=== PATIENT | male | born 1995 | race African-American/Black ===

== ENCOUNTER 2017-10-09 09:51 | Emergency (ER) | payer MEDICAID, SELFPAY ==
[~2017-10-09] VITALS: Ht 172.7 cm; Wt 108.2 kg
[2017-10-09] MEDS ORDERED: AZITHROMYCIN 250 MG TAB PO ONE (12:00)
[2017-10-09] MEDS ORDERED: cefTRIAXone SOD 250 MG VIAL (J0696) IM ONE (12:00)
[2017-10-09 12:15] VITALS: BP 137/80
--- NOTE | 2017-10-09 13:12 | REP ---
SCROTAL ULTRASOUND: Real-time sonographic evaluation of the scrotum and contents performed. Testicles are normal in size and echotexture, right testicle measuring 4.8 x 2.5 x 3.1 cm and left testicle 5.4 x 3.1 x 4.4 cm. There is no testicular mass or torsion. Blood flow is seen in each testicle with duple Doppler evaluation, RI right testicle 0.41 and left testicle 0.51. Increased blood flow is seen to the right epididymis superiorly suggesting right sided epididymitis. No hydrocele or other abnormality is seen. IMPRESSION: Findings suggestive of right sided epididymitis. No testicular mass or torsion. Signed by Steven Vera MD 10/09/2017 05:36 P
== END 2017-10-09 12:37 | disposition home or self-care (01) ==
LOC: M ED 09:51
DX: N45.1 Epididymitis (principal); Z20.2 Contact with and (suspected) exposure to infections with a predominantly sexual mode of transmission
CPT/HCPCS: 76870; 81001; 87491; 87591; 93976; 96372; 99284; J0696

== ENCOUNTER 2018-02-16 09:37 | Emergency (ER) | payer OTHER, MEDICAID ==
[2018-02-16 10:27] LABS: KETONE, URINE AUTO RFX NEGATIVE (NEGATIVE); LEUKOCYTE ESTERASE UR AUTO RFX NEGATIVE (NEGATIVE); MUCUS, URINE RFX SMALL (NEGATIVE); NITRITE, URINE AUTO RFX NEGATIVE (NEGATIVE); RBC, URINE AUTO RFX 2 /HPF (0-3); SPECIFIC GRAVITY UR AUTO RFX 1.017 (1.002-1.035); SQUAM EPITHELIAL CELL UR AURFX 0 /HPF (0-6); WBC, URINE AUTO RFX 3 /HPF (0-3)
[2018-02-16 13:08] LABS: CHLAMYDIA DNA AMPLIFICATION NEGATIVE (NEGATIVE); GC DNA AMPLIFICATION NEGATIVE (NEGATIVE)
== END 2018-02-16 11:54 | disposition home or self-care (01) ==
LOC: M ED 09:37
DX: N45.2 Orchitis (principal); I10 Essential (primary) hypertension; J45.909 Unspecified asthma, uncomplicated; Z79.899 Other long term (current) drug therapy; F17.210 Nicotine dependence, cigarettes, uncomplicated
CPT/HCPCS: 76870

== ENCOUNTER 2018-03-20 11:22 | Emergency (ER) | payer OTHER ==
[2018-03-20] MEDS: KETOROLAC 60 MG/2 ML VIAL (J1885) IM (14:27)
== END 2018-03-20 15:06 | disposition home or self-care (01) ==
LOC: M ED 11:22
DX: M54.31 Sciatica, right side (principal); J45.909 Unspecified asthma, uncomplicated; I10 Essential (primary) hypertension; Z79.899 Other long term (current) drug therapy
CPT/HCPCS: J1885

== ENCOUNTER → 2018-04-11 | Outpatient (REF) | payer OTHER, MEDICAID ==
[2018-04-11 18:36] LABS: ALBUMIN 3.8 GM/DL (3.2-5.2); ALBUMIN/GLOBULIN RATIO 0.93 (1.00-1.93); ALKALINE PHOSPHATASE 89 U/L (45-117); ALT/SGPT 106 U/L (12-78); ANION GAP 5 MEQ/L (8-16); AST/SGOT 51 U/L (7-37); BILIRUBIN,TOTAL 0.5 MG/DL (0.2-1.0); BLOOD UREA NITROGEN 13 MG/DL (7-18); CALCIUM LEVEL 9.6 MG/DL (8.5-10.1); CARBON DIOXIDE LEVEL 33 MEQ/L (21-32); CHLORIDE LEVEL 104 MEQ/L (98-107); CHOLESTEROL LEVEL 154 MG/DL (<200); CHOLESTEROL RISK RATIO 3.422 (<5); CREATININE FOR GFR 1.09 MG/DL (0.70-1.30); GLOMERULAR FILTRATION RATE > 60.0 (>60); GLUCOSE, FASTING 112 MG/DL (70-100); HDL CHOLESTEROL 45 MG/DL (>40); LDL CHOLESTEROL 92.2 MG/DL (<100); NON-HDL-C 109 MG/DL; SODIUM LEVEL 142 MEQ/L (136-145); THYROID STIMULATING HORMONE 0.665 uIU/ML (0.358-3.740); TOTAL PROTEIN 7.9 GM/DL (6.4-8.2); TRIGLYCERIDES LEVEL 84 MG/DL (<150)
== END ==
LOC: M LAB REF 17:33
DX: I10 Essential (primary) hypertension (principal)
CPT/HCPCS: 84443

== ENCOUNTER → 2018-05-01 | Outpatient (REF) | payer OTHER, MEDICAID ==
[2018-05-03 08:10] LABS: HEPATITIS A IgG TOTAL Positive (Negative)
[2018-05-03 08:47] LABS: HEPATITIS B SURFACE ANTIBODY NEGATIVE (POSITIVE)
[2018-05-03 08:53] LABS: HEPATITIS B SURFACE ANTIGEN NEGATIVE (NEGATIVE)
[2018-05-03 09:18] LABS: HEPATITIS C VIRUS ABY INDEX 0.1 INDEX (<0.8)
== END ==
LOC: M LAB REF 17:36
DX: R79.89 Other specified abnormal findings of blood chemistry (principal)

== ENCOUNTER → 2020-01-03 | Outpatient (REF) | payer OTHER, MEDICAID ==
[~2020-01-03] MED LIST: AMLO5TAB6; CIPR-249 PO; IBUP-1022 PO; NAPR-837 PO
[2020-01-03 14:48] LABS: ALBUMIN 3.9 GM/DL (3.2-5.2); ALT/SGPT 55 U/L (12-78); BILIRUBIN,TOTAL 0.3 MG/DL (0.2-1.0); BLOOD UREA NITROGEN 12 MG/DL (7-18); CALCIUM LEVEL 8.9 MG/DL (8.5-10.1); CARBON DIOXIDE LEVEL 29 MEQ/L (21-32); CHLORIDE LEVEL 104 MEQ/L (98-107); CHOLESTEROL LEVEL 129 MG/DL (<200); CHOLESTEROL RISK RATIO 3.146 (<5); FOLATE 11.8 NG/ML; FREE T4 1.31 NG/DL (0.76-1.46); GLOMERULAR FILTRATION RATE > 60.0 (>60); GLUCOSE, FASTING 105 MG/DL (70-100); HDL CHOLESTEROL 41 MG/DL (>40); LDL CHOLESTEROL 76 MG/DL (<100); NON-HDL-C 88 MG/DL; POTASSIUM SERUM 3.4 MEQ/L (3.5-5.1); SODIUM LEVEL 139 MEQ/L (136-145); TOTAL 25(OH) VITAMIN D 17.4 NG/ML (30.0-100.0); TRIGLYCERIDES LEVEL 60 MG/DL (<150); VITAMIN B12 LEVEL 946 PG/ML
[2020-01-03 14:50] LABS: HEMOGLOBIN A1c 5.6 %
[2020-01-03 14:54] LABS: BASO # 0.1 10^3/uL (0.0-0.2); BASO % 0.4 % (0.0-1.0); EOS # 0.2 10^3/uL (0.0-0.5); EOS % 1.4 % (0.0-3.0); HEMATOCRIT 48.3 % (42.0-52.0); HEMOGLOBIN 15.8 g/dl (13.5-17.5); LYMPH # 4.2 10^3/uL (1.5-5.0); LYMPH % 37.6 % (24.0-44.0); MEAN CORPUSCULAR HEMOGLOBIN 30.5 pg (27.0-33.0); MEAN CORPUSCULAR HGB CONC 32.7 g/dl (32.0-36.5); MEAN CORPUSCULAR VOLUME 93.2 fl (80.0-96.0); MONO # 0.9 10^3/uL (0.0-0.8); NEUTROPHILS # 5.9 10^3/uL (1.5-8.5); NEUTROPHILS % 52.3 % (36.0-66.0); PLATELET COUNT, AUTOMATED 231 10^3/uL (150-450); RED BLOOD COUNT 5.18 10^6/uL (4.30-6.10); WHITE BLOOD COUNT 11.2 10^3/uL (4.0-10.0)
== END ==
LOC: M LAB REF 12:12
PROVIDERS: ATTEND Nurse Practitioner Family
DX: Z00.01 Encounter for general adult medical examination with abnormal findings (principal); I10 Essential (primary) hypertension; H40.053 Ocular hypertension, bilateral; Z72.0 Tobacco use; R79.89 Other specified abnormal findings of blood chemistry; E66.09 Other obesity due to excess calories; F31.0 Bipolar disorder, current episode hypomanic

== ENCOUNTER → 2020-01-04 | Outpatient (REF) | payer OTHER, MEDICAID ==
[2020-01-04 18:00] LABS: APPEARANCE, URINE CLEAR (CLEAR); BACTERIA, URINE AUTO NEGATIVE (NEGATIVE); BILIRUBIN, URINE AUTO NEGATIVE (NEGATIVE); BLOOD, URINE BLOOD NEGATIVE (NEGATIVE); COLOR, URINE YELLOW (YELLOW); GLUCOSE, URINE (UA) AUTO NEGATIVE (NEGATIVE); KETONE, URINE AUTO NEGATIVE (NEGATIVE); LEUKOCYTE ESTERASE, URINE AUTO NEGATIVE (NEGATIVE); NITRITE, URINE AUTO NEGATIVE (NEGATIVE); PROTEIN, URINE AUTO NEGATIVE (NEGATIVE); RBC, URINE AUTO 1 /HPF (0-3); SPECIFIC GRAVITY URINE AUTO 1.016 (1.002-1.035); SQUAMOUS EPITHELIAL CELL UR AU 0 /HPF (0-6); UROBILINOGEN, URINE AUTO 0.2 mg/dL (0.0-2.0); WBC, URINE AUTO 0 /HPF (0-3)
== END ==
LOC: M LAB REF 16:36
PROVIDERS: ATTEND Nurse Practitioner Family
DX: Z00.01 Encounter for general adult medical examination with abnormal findings (principal); R79.89 Other specified abnormal findings of blood chemistry; Z72.0 Tobacco use; E66.09 Other obesity due to excess calories; F31.0 Bipolar disorder, current episode hypomanic; H40.053 Ocular hypertension, bilateral; I10 Essential (primary) hypertension

== ENCOUNTER 2021-02-24 16:34 | Emergency (ER) | payer MEDICAID, OTHER ==
[~2021-02-24] VITALS: Ht 172.7 cm; Wt 116.4 kg
[~2021-02-24 16:34] MED LIST changes: +AMLO1TAB24; -AMLO5TAB6
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
[2021-02-24 18:06] LABS: BASO # 0.1 10^3/uL (0.0-0.2); BASO % 0.4 % (0.0-1.0); EOS # 0.1 10^3/uL (0.0-0.5); EOS % 1.1 % (0.0-3.0); HEMATOCRIT 49.1 % (42.0-52.0); HEMOGLOBIN 16.5 g/dl (13.5-17.5); LYMPH # 3.7 10^3/uL (1.5-5.0); LYMPH % 28.8 % (24.0-44.0); MEAN CORPUSCULAR HEMOGLOBIN 31.1 pg (27.0-33.0); MEAN CORPUSCULAR HGB CONC 33.6 g/dl (32.0-36.5); MEAN CORPUSCULAR VOLUME 92.5 fl (80.0-96.0); MONO % 7.5 % (2.0-8.0); NEUTROPHILS % 61.7 % (36.0-66.0); PLATELET COUNT, AUTOMATED 237 10^3/uL (150-450); RED BLOOD COUNT 5.31 10^6/uL (4.30-6.10); WHITE BLOOD COUNT 12.9 10^3/uL (4.0-10.0)
[2021-02-24 18:19] LABS: INR 0.9; PROTHROMBIN TIME 12.3 SECONDS (12.5-14.3)
[2021-02-24 18:30] LABS: ALBUMIN 3.7 GM/DL (3.2-5.2); ALT/SGPT 44 U/L (12-78); BILIRUBIN,DIRECT 0.1 MG/DL (0.0-0.2); BILIRUBIN,TOTAL 0.4 MG/DL (0.2-1.0); CK-MB VALUE MASS 1.9 NG/ML (<3.6); CPK CREATINE PHOSPHOKINASE 269 U/L (39-308); LIPASE 62 U/L (73-393); MB/CK RELATIVE INDEX 0.71 (< OR =4); TOTAL PROTEIN 7.2 GM/DL (6.4-8.2); TROPONIN I < 0.02 NG/ML (< 0.10)
[2021-02-24] MEDS ORDERED: LISI20TA33 PO (18:49)
[2021-02-24] MEDS ORDERED: HYDR12.55 PO (18:49)
[2021-02-24 19:19] VITALS: BP 130/74
== END 2021-02-24 19:38 | disposition home or self-care (01) ==
LOC: M ED 16:34
DX: I10 Essential (primary) hypertension (principal); Z91.19 Patient's noncompliance with other medical treatment and regimen; F12.20 Cannabis dependence, uncomplicated

== ENCOUNTER → 2023-02-03 | Outpatient (REF) | payer OTHER ==
[~2023-02-03] MED LIST changes: +HYDR12.55 PO; +LISI20TA33 PO
[2023-02-03 18:17] LABS: ALBUMIN 3.9 G/DL (3.2-5.2); ALKALINE PHOSPHATASE 73 U/L (46-116); ALT/SGPT 90 U/L (7.0-40); AST/SGOT 48 U/L (<34); BILIRUBIN,TOTAL 0.4 MG/DL (0.3-1.2); BLOOD UREA NITROGEN 15 MG/DL (9-23); CALCIUM LEVEL 9.4 MG/DL (8.5-10.1); CARBON DIOXIDE LEVEL 29 MMOL/L (20-31); CHLORIDE LEVEL 103 MMOL/L (98-107); CHOLESTEROL LEVEL 163 MG/DL (<200); CHOLESTEROL RISK RATIO 3.89 (<5); GLOMERULAR FILTRATION RATE > 60.0 (>60); GLUCOSE, FASTING 80 MG/DL (60-100); HDL CHOLESTEROL 41.9 MG/DL (>40); LDL CHOLESTEROL 98.5 MG/DL (<100); NON-HDL-C 121.1 MG/DL; POTASSIUM SERUM 4.2 MMOL/L (3.5-5.1); SODIUM LEVEL 136 MMOL/L (136-145); TOTAL PROTEIN 7.4 G/DL (5.7-8.2); TRIGLYCERIDES LEVEL 113 MG/DL (<150)
[2023-02-03 18:19] LABS: THYROID STIMULATING HORMONE 1.034 uIU/ML (0.55-4.78); TOTAL 25(OH) VITAMIN D 23.8 NG/ML (20.0-100.0)
[2023-02-03 18:23] LABS: HEMOGLOBIN A1c 5.8 % (4.0-6.0)
== END ==
LOC: M LAB REF 16:55
PROVIDERS: ATTEND Nurse Practitioner Family
DX: E66.9 Obesity, unspecified (principal); E55.9 Vitamin D deficiency, unspecified

== ENCOUNTER 2024-07-28 20:36 | Emergency (ER) | payer OTHER ==
[~2024-07-28] VITALS: Ht 172.7 cm; Wt 119.5 kg
[2024-07-28 21:09] LABS: BASO % 0.3 % (0.0-1.0); EOS # 0.2 10^3/uL (0.0-0.5); EOS % 1.4 % (0.0-3.0); HEMATOCRIT 46.9 % (42.0-52.0); HEMOGLOBIN 15.9 g/dl (13.5-17.5); LYMPH # 3.8 10^3/uL (1.5-5.0); LYMPH % 33.5 % (24.0-44.0); MEAN CORPUSCULAR HEMOGLOBIN 30.9 pg (27.0-33.0); MEAN CORPUSCULAR HGB CONC 33.9 g/dl (32.0-36.5); MEAN CORPUSCULAR VOLUME 91.1 fl (80.0-96.0); MONO # 0.9 10^3/uL (0.0-0.8); NEUTROPHILS # 6.5 10^3/uL (1.5-8.5); NEUTROPHILS % 56.5 % (36.0-66.0); PLATELET COUNT, AUTOMATED 247 10^3/uL (150-450); RED BLOOD COUNT 5.15 10^6/uL (4.30-6.10); WHITE BLOOD COUNT 11.5 10^3/uL (4.0-10.0)
[2024-07-28 21:28] LABS: LIPASE 27 U/L (12-53)
[2024-07-28 21:30] LABS: ALBUMIN 3.7 G/DL (3.2-5.2); ALKALINE PHOSPHATASE 81 U/L (46-116); ALT/SGPT 66 U/L (7.0-40); AST/SGOT 30 U/L (<34); BILIRUBIN,DIRECT 0.1 MG/DL (<0.4); BILIRUBIN,TOTAL 0.4 MG/DL (0.3-1.2); BLOOD UREA NITROGEN 11 MG/DL (9-23); CALCIUM LEVEL 9.6 MG/DL (8.5-10.1); CARBON DIOXIDE LEVEL 26 MMOL/L (20-31); CHLORIDE LEVEL 109 MMOL/L (98-107); CREATININE FOR GFR 0.83 MG/DL (0.70-1.30); GLOMERULAR FILTRATION RATE > 60.0 (>60); GLUCOSE, FASTING 141 MG/DL (60-100); POTASSIUM SERUM 3.9 MMOL/L (3.5-5.1); SODIUM LEVEL 141 MMOL/L (136-145); TOTAL PROTEIN 7.2 G/DL (5.7-8.2)
[2024-07-28 21:32] LABS: CPK CREATINE PHOSPHOKINASE 303 U/L (46-171); MB/CK RELATIVE INDEX 0.33 (< OR =4)
[2024-07-28] MEDS: KETOROLAC 30 MG/ML 1ML VIAL IV ONE (22:02)
[2024-07-28 22:04] VITALS: BP 176/116
[2024-07-28] MEDS: hydroCHLOROthiazide 12.5 MG CAPSULE PO ONE (22:04)
[2024-07-28 22:24] LABS: CK-MB VALUE MASS < 1.0 NG/ML (<3.6)
[2024-07-28 22:37] LABS: CPK CREATINE PHOSPHOKINASE 306 U/L (46-171); MB/CK RELATIVE INDEX 0.32 (< OR =4)
[2024-07-29] MEDS ORDERED: LISI20TA35 PO (00:33)
[2024-07-29] MEDS ORDERED: AMLO10TA PO (00:33)
[2024-07-29 01:07] VITALS: BP 164/98; TEMP 97.6; O2SAT 100
== END 2024-07-29 01:09 | disposition home or self-care (01) ==
LOC: M ED 20:36
DX: I16.0 Hypertensive urgency (principal); Z91.198 Patient's noncompliance with other medical treatment and regimen for other reason; F14.10 Cocaine abuse, uncomplicated; F17.200 Nicotine dependence, unspecified, uncomplicated; Z79.899 Other long term (current) drug therapy
CPT/HCPCS: 71045; 80048; 80076; 82550; 82553; 83690; 84484; 85025; 93005; 93041; 94760; 96374; 99285; J1885

== ENCOUNTER → 2024-09-03 | Outpatient (REF) | payer OTHER ==
[~2024-09-03] MED LIST changes: +AMLO10TA PO; +LISI20TA35 PO
[2024-09-03 18:48] LABS: BASO % 0.3 % (0.0-1.0); EOS # 0.1 10^3/uL (0.0-0.5); EOS % 0.8 % (0.0-3.0); HEMATOCRIT 46.6 % (42.0-52.0); HEMOGLOBIN 15.7 g/dl (13.5-17.5); LYMPH # 2.7 10^3/uL (1.5-5.0); LYMPH % 22.3 % (24.0-44.0); MEAN CORPUSCULAR HEMOGLOBIN 30.5 pg (27.0-33.0); MEAN CORPUSCULAR HGB CONC 33.7 g/dl (32.0-36.5); MEAN CORPUSCULAR VOLUME 90.5 fl (80.0-96.0); NEUTROPHILS # 8.2 10^3/uL (1.5-8.5); NEUTROPHILS % 68.3 % (36.0-66.0); PLATELET COUNT, AUTOMATED 303 10^3/uL (150-450); RED BLOOD COUNT 5.15 10^6/uL (4.30-6.10)
[2024-09-03 19:01] LABS: HEMOGLOBIN A1c 5.9 % (4.0-6.0)
[2024-09-03 19:15] LABS: ALBUMIN 3.7 G/DL (3.2-5.2); ALKALINE PHOSPHATASE 79 U/L (46-116); ALT/SGPT 96 U/L (7.0-40); AST/SGOT 40 U/L (<34); BILIRUBIN,TOTAL 0.6 MG/DL (0.3-1.2); BLOOD UREA NITROGEN 11 MG/DL (9-23); CALCIUM LEVEL 9.8 MG/DL (8.5-10.1); CARBON DIOXIDE LEVEL 28 MMOL/L (20-31); CHLORIDE LEVEL 107 MMOL/L (98-107); CHOLESTEROL LEVEL 157 MG/DL (<200); CHOLESTEROL RISK RATIO 4.08 (<5); CREATININE FOR GFR 0.75 MG/DL (0.70-1.30); GLOMERULAR FILTRATION RATE > 60.0 (>60); GLUCOSE, FASTING 108 MG/DL (60-100); HDL CHOLESTEROL 38.4 MG/DL (>40); LDL CHOLESTEROL 100.4 MG/DL (<100); NON-HDL-C 118.6 MG/DL; POTASSIUM SERUM 3.8 MMOL/L (3.5-5.1); SODIUM LEVEL 140 MMOL/L (136-145); TOTAL PROTEIN 7.4 G/DL (5.7-8.2); TRIGLYCERIDES LEVEL 91 MG/DL (<150)
[2024-09-03 19:17] LABS: THYROID STIMULATING HORMONE 0.722 uIU/ML (0.55-4.78); TOTAL 25(OH) VITAMIN D 20.9 NG/ML (20.0-100.0)
== END ==
LOC: M LAB REF 16:35
PROVIDERS: ATTEND Nurse Practitioner Family
DX: I10 Essential (primary) hypertension (principal); E66.9 Obesity, unspecified; E55.9 Vitamin D deficiency, unspecified; R73.03 Prediabetes

== ENCOUNTER → 2025-09-26 | Outpatient (REF) | payer OTHER ==
[~2025-09-26] MED LIST changes: +AMLO-751 PO; -AMLO10TA PO; -IBUP-1022 PO; +IBUP600T42 PO
[2025-09-26 22:43] LABS: APPEARANCE, URINE CLEAR (CLEAR); BACTERIA, URINE AUTO NEGATIVE (NEGATIVE); BILIRUBIN, URINE AUTO NEGATIVE (NEGATIVE); BLOOD, URINE BLOOD NEGATIVE (NEGATIVE); GLUCOSE, URINE (UA) AUTO NEGATIVE (NEGATIVE); KETONE, URINE AUTO NEGATIVE (NEGATIVE); LEUKOCYTE ESTERASE, URINE AUTO NEGATIVE (NEGATIVE); MUCUS, URINE SMALL (NEGATIVE); NITRITE, URINE AUTO NEGATIVE (NEGATIVE); PROTEIN, URINE AUTO NEGATIVE (NEGATIVE); RBC, URINE AUTO 2 /HPF (0-3); SPECIFIC GRAVITY URINE AUTO 1.018 (1.002-1.035); SQUAMOUS EPITHELIAL CELL UR AU 0 /HPF (0-6); UROBILINOGEN, URINE AUTO 4.0 mg/dL (0.0-2.0); WBC, URINE AUTO 1 /HPF (0-3)
[2025-09-26 23:36] LABS: Trichomonas vaginalis (AMP) POSITIVE (NEGATIVE)
[2025-09-27 00:05] LABS: GC DNA AMPLIFICATION NEGATIVE (NEGATIVE)
== END ==
LOC: M LAB REF 22:12
PROVIDERS: ATTEND Physician Assistant
DX: Z20.2 Contact with and (suspected) exposure to infections with a predominantly sexual mode of transmission (principal)

== ENCOUNTER → 2025-11-06 | Outpatient (REF) | payer OTHER ==
[2025-11-06 13:22] LABS: Trichomonas vaginalis (AMP) POSITIVE (NEGATIVE)
[2025-11-06 13:50] LABS: GC DNA AMPLIFICATION NEGATIVE (NEGATIVE)
== END ==
LOC: M LAB REF 11:51
PROVIDERS: ATTEND Physician Assistant
DX: Z20.2 Contact with and (suspected) exposure to infections with a predominantly sexual mode of transmission (principal)